=== PATIENT | male | born 1970 | race Caucasian/White ===

== ENCOUNTER 2019-04-26 14:44 | Emergency (ER) | payer MEDICAID, SELFPAY ==
[2019-04-26 14:46] VITALS: BP 140/87; PULSE 98; RESP 17; TEMP 36.8; O2SAT 98; BMI 27.3
[2019-04-26 15:02] VITALS: BP 113/95; PULSE 99; RESP 20; O2SAT 96
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
[2019-04-26 15:30] LABS: Absolute Lymphocyte Count 2.79 X10^3/uL (0.83-4.51); Absolute Neutrophil Count 3.6 X10^3/uL (2.0-7.7); Basophil# 0.07 X10^3/uL; Basophil% 0.9 % (0-1); Eosinophil# 0.29 X10^3/uL; Eosinophils% 3.8 % (0-5); Hematocrit 47.5 % (40-54); Hemoglobin 15.9 g/dL (13.0-16.5); Lymphocyte # 2.79 X10^3/ul (4.0); Lymphocyte % 36.9 % (19-41); Mean Corp Hgb Conc 33.5 g/dL (32-36); Mean Corpuscular Hgb 32.1 pg (27.0-32.0); Mean Corpuscular Volume 95.8 fL (80-94); Monocyte# 0.77 X10^3/uL; Monocyte% 10.2 % (0-10); NRBC Flagged by Analyzer 0 % (0-5); Neutrophil # 3.59 X10^3/uL (2.7-7.7); Neutrophil % 47.4 % (47-70); Platelet Count 240 K/mm3 (150-450); RBC Distribution Width CV 12.8 % (11.6-14.6); RBC Distribution Width SD 45.3 fl (35.1-43.9); Red Blood Count 4.96 M/mm3 (4.6-6.2); White Blood Count 7.6 K/mm3 (4.4-11.0)
[2019-04-26 15:43] LABS: Anion Gap 5 (5-15); BUN 10 mg/dL (7-18); BUN/Creat Ratio 9.5 RATIO (10-20); Calcium,Total 8.6 mg/dL (8.5-10.1); Chloride 110 mmol/L (98-107); Creatinine, Serum 1.05 mg/dL (0.70-1.30); EST Glomerular Filtration Rate 79 mL/min (>60); Est Glom Filt Rate - Afr Amer 96 mL/min (>60); Estimated Creatinine Clearance 80.52 ml/min; Glucose 92 mg/dL (74-106); Potassium 4.2 mmol/L (3.5-5.1); Sodium Level 142 mmol/L (136-145)
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
[2019-04-26 17:14] VITALS: BP 115/70; BP 121/70; PULSE 85; RESP 14; RESP 16; O2SAT 97; O2SAT 98
== END 2019-04-26 17:15 | disposition home or self-care (01) ==
PROVIDERS: Emergency Provider Emergency Medicine
DX: S30.1XXA Contusion of abdominal wall, initial encounter (principal); S30.0XXA Contusion of lower back and pelvis, initial encounter; Y08.02XA Assault by strike by baseball bat, initial encounter; Y93.9 Activity, unspecified; Y92.9 Unspecified place or not applicable; Z72.0 Tobacco use
CPT/HCPCS: 70450; 71250; 74176; 80048; 85025; 99282; A4216